=== PATIENT | male | born 1940 | race Caucasian/White ===

== ENCOUNTER 2018-02-16 03:43 | Inpatient (IN) | payer OTHER ==
[~2018-02-16] VITALS: Ht 182.9 cm; Wt 81.5 kg
[2018-02-16] MEDS ORDERED: LABETALOL HCL 5 MG/ML ML 20ML VIAL IV ONE (05:30)
[2018-02-16 06:09] LABS: Basophils # (auto) 0.1 uL; Basophils % (auto) 0.6 % (0.0-2.0); Eosinophils # (auto) 0.2 uL; Eosinophils % (auto) 1.7 % (0.0-7.0); Hemoglobin 10.6 g/dL (13.5-17.5); Lymphocytes # (auto) 1.1 uL; Lymphocytes % (auto) 10.7 % (10.0-50.0); Mean Corpuscular Hemoglobin 29.3 pg (28.0-32.0); Mean Corpuscular Hgb Conc. 33.1 g/dL (32.0-36.0); Mean Corpuscular Volume 88.4 fL (80.0-100.0); Monocytes % (auto) 9.4 % (0.0-12.0); Neutrophils # (auto) 8.1 uL; Neutrophils % (auto) 77.6 % (37.0-80.0); Nucleated Red Blood Cells % 0.1 %; Platelet Count (auto) 187 10^3/uL (140-450); Red Blood Cells 3.62 10^6/uL (4.5-5.90); Red Cell Distribution Width 15.4 % (11.8-14.3); White Blood Cell 10.4 10^3/uL (4.4-10.8)
[2018-02-16 06:16] LABS: Albumin 3.5 g/dL (3.4-5.0); BUN/Creatinine Ratio 21.5; Calcium 8.7 mg/dL (8.5-10.1); Magnesium 2.2 mg/dL (1.6-2.6); Potassium 3.2 mmol/L (3.5-5.1)
[2018-02-16 06:21] LABS: Bilirubin, Total 1.3 mg/dL (0.2-1.0); Total Protein 7.4 g/dL (6.4-8.2)
[2018-02-16 06:24] LABS: Urine Amorphous Crystal MANY /hpf (None Seen); Urine Bacteria FEW /hpf (None Seen); Urine Blood Negative /uL (Negative); Urine Mucus FEW (None Seen); Urine Specific Gravity 1.022 (1.001-1.035); Urine WBC 1 /hpf (0 - 3)
[2018-02-16] MEDS ORDERED: IOHEXOL 350 MG/ML 100ML IJ ONE (07:52)
[2018-02-16] MEDS ORDERED: FUROSEMIDE 40 MG/4 ML VIAL IV ONE ×2 (08:00→11:45)
[2018-02-16] MEDS ORDERED: POTASSIUM CHL 10% (20 MEQ/15ML) 15ml ORAL SOLN PO ONE (08:00)
[2018-02-16] MEDS ORDERED: cefTRIAXone 1GM/10ml IVPUSH 10 ML IV ONE (08:00)
[2018-02-16] MEDS ORDERED: AZITHROMYCIN 500MG/ 250ML 250 ML IV ONE (08:00)
[2018-02-16] MEDS ORDERED: ALBUTEROL SULF 2.5 MG/0.5ML(0.5%) NEB SOLN NEB PRN (08:15)
[2018-02-16] MEDS ORDERED: HYDROcodone-ACET 5/325MG TAB PO PRN (08:15)
[2018-02-16] MEDS ORDERED: ACETAMINOPHEN 500 MG TAB PO PRN (08:15)
[2018-02-16] MEDS ORDERED: LACTULOSE 20Gm/30ML SOLN PO PRN ×2 (08:15)
[2018-02-16] MEDS ORDERED: PROMETHAZINE HCL 25 MG/ML 1ML IV PRN (08:15)
[2018-02-16] MEDS ORDERED: NITROGLYCERIN 0.4 MG SL TAB SL PRN (08:15)
[2018-02-16] MEDS ORDERED: MORPHINE SULFATE 4 MG/ML SYR/VIAL IV PRN ×2 (08:15)
[2018-02-16] MEDS ORDERED: TEMAZEPAM 15 MG CAP PO PRN (08:15)
[2018-02-16] MEDS ORDERED: LORazepam 0.5 MG TAB PO PRN (08:15)
[2018-02-16] MEDS: cefTRIAXone 1GM/10ml IVPUSH 10 ML IV SCH (09:00)
[2018-02-16] MEDS: FUROSEMIDE 40 MG/4 ML VIAL IV SCH (09:33)
[2018-02-16] MEDS: POTASSIUM CHL 20 Meq TABLET PO SCH (09:34)
[2018-02-16] MEDS: ASPirin 81 mg TAB PO SCH (09:34)
[2018-02-16] MEDS: PANTOPRAZOLE 40 MG TAB PO SCH (09:34)
[2018-02-16] MEDS: AZITHROMYCIN 500MG/ 250ML 250 ML IV SCH (09:34)
[2018-02-16] MEDS: NITROGLYCERIN 0.2MG/HR TOPICAL PATCH TD SCH (09:35)
[2018-02-16] MEDS: ENOXAPARIN SOD 40 MG/0.4 ML SYRINGE SC SCH (09:35)
[2018-02-16] MEDS: ENALAPRIL MALEATE 2.5 MG TAB PO SCH (09:35)
[2018-02-16] MEDS ORDERED: CARVEDILOL 3.125 MG TAB PO SCH (10:00)
[2018-02-16 10:12] VITALS: BP 149/113
[2018-02-16 11:58] LABS: INR 1.07 (0.9-1.15); Partial Thromboplastin Time 28.7 sec (23.78-33.04); Prothrombin Time 11.4 sec (9.27-12.13)
[2018-02-16 12:00] VITALS: BP 136/86
[2018-02-16 13:00] VITALS: BP 123/72
[2018-02-16] MEDS: SODIUM CHLOR 0.9% PF (SALINE LOCK) 10ML VIAL/SYR IV SCH ×2 (13:38→22:07)
[2018-02-16] MEDS ORDERED: CLON0.1T PO (14:28)
[2018-02-16] MEDS ORDERED: CARV25TA55 PO (14:28)
[2018-02-16] MEDS ORDERED: ENA10T GT (14:28)
[2018-02-16 17:00] VITALS: BP 143/69
[2018-02-16 22:00] VITALS: BP 150/94
[2018-02-16] MEDS: CARVEDILOL 3.125 MG TAB PO SCH (22:08)
[2018-02-17 05:00] VITALS: BP 140/84
[2018-02-17] MEDS: SODIUM CHLOR 0.9% PF (SALINE LOCK) 10ML VIAL/SYR IV SCH ×3 (05:45→21:59)
[2018-02-17 06:21] LABS: Basophils # (auto) 0.1 uL; Basophils % (auto) 0.7 % (0.0-2.0); Eosinophils # (auto) 0.1 uL; Eosinophils % (auto) 1.2 % (0.0-7.0); Hematocrit 30.5 % (41.0-53.0); Hemoglobin 10.1 g/dL (13.5-17.5); Lymphocytes # (auto) 0.8 uL; Mean Corpuscular Hemoglobin 29.2 pg (28.0-32.0); Mean Corpuscular Hgb Conc. 33.1 g/dL (32.0-36.0); Mean Corpuscular Volume 88.1 fL (80.0-100.0); Monocytes # (auto) 1.3 uL; Monocytes % (auto) 11.8 % (0.0-12.0); Neutrophils # (auto) 8.9 uL; Neutrophils % (auto) 79.3 % (37.0-80.0); Nucleated Red Blood Cells % 0.1 %; Platelet Count (auto) 169 10^3/uL (140-450); Red Blood Cells 3.46 10^6/uL (4.5-5.90); Red Cell Distribution Width 14.9 % (11.8-14.3); White Blood Cell 11.2 10^3/uL (4.4-10.8)
[2018-02-17 06:36] LABS: Albumin 3.2 g/dL (3.4-5.0); BUN/Creatinine Ratio 21.7; Bilirubin, Total 1.6 mg/dL (0.2-1.0); Calcium 8.7 mg/dL (8.5-10.1); Potassium 3.1 mmol/L (3.5-5.1)
[2018-02-17 08:00] VITALS: BP 138/81
[2018-02-17] MEDS: cefTRIAXone 1GM/10ml IVPUSH 10 ML IV SCH (09:12)
[2018-02-17] MEDS: FUROSEMIDE 40 MG/4 ML VIAL IV SCH ×2 (09:13→18:28)
[2018-02-17] MEDS: ASPirin 81 mg TAB PO SCH (09:14)
[2018-02-17] MEDS: POTASSIUM CHL 20 Meq TABLET PO SCH (09:14)
[2018-02-17] MEDS: CARVEDILOL 3.125 MG TAB PO SCH ×2 (09:15→22:00)
[2018-02-17] MEDS: PANTOPRAZOLE 40 MG TAB PO SCH (09:16)
[2018-02-17] MEDS: ENALAPRIL MALEATE 2.5 MG TAB PO SCH (09:17)
[2018-02-17] MEDS: NITROGLYCERIN 0.2MG/HR TOPICAL PATCH TD SCH (09:18)
[2018-02-17] MEDS: AZITHROMYCIN 500MG/ 250ML 250 ML IV SCH (09:19)
[2018-02-17] MEDS: ENOXAPARIN SOD 40 MG/0.4 ML SYRINGE SC SCH (09:19)
[2018-02-17] MEDS ORDERED: POTASSIUM CHL 20 Meq TABLET PO ONE (10:00)
[2018-02-17] MEDS ORDERED: FURO40TA PO (10:13)
[2018-02-17] MEDS ORDERED: ASPI81CH43 PO (10:13)
[2018-02-17] MEDS ORDERED: POTA10TA51 PO (10:13)
[2018-02-17] MEDS ORDERED: ALBU1AER4 IN (10:15)
[2018-02-17 12:00] VITALS: BP 104/70
[2018-02-17 16:58] VITALS: BP 132/84
[2018-02-17 22:00] VITALS: BP 122/71
[2018-02-17] MEDS: ATORVASTATIN 20 MG TAB PO SCH (22:01)
[2018-02-18 05:20] VITALS: BP 125/74
[2018-02-18] MEDS: FUROSEMIDE 40 MG/4 ML VIAL IV SCH ×2 (05:44→17:57)
[2018-02-18] MEDS: SODIUM CHLOR 0.9% PF (SALINE LOCK) 10ML VIAL/SYR IV SCH ×3 (05:45→23:59)
[2018-02-18 08:00] VITALS: BP 131/74
[2018-02-18] MEDS: ENOXAPARIN SOD 40 MG/0.4 ML SYRINGE SC SCH (10:06)
[2018-02-18] MEDS: NITROGLYCERIN 0.2MG/HR TOPICAL PATCH TD SCH (10:06)
[2018-02-18] MEDS: ASPirin 81 mg TAB PO SCH (10:06)
[2018-02-18] MEDS: POTASSIUM CHL 20 Meq TABLET PO SCH (10:06)
[2018-02-18] MEDS: PANTOPRAZOLE 40 MG TAB PO SCH (10:06)
[2018-02-18] MEDS: ENALAPRIL MALEATE 2.5 MG TAB PO SCH (10:07)
[2018-02-18] MEDS: CARVEDILOL 3.125 MG TAB PO SCH ×2 (10:07→23:59)
[2018-02-18] MEDS ORDERED: POTASSIUM CHL 20MEQ/100ML 100 ML IV ONE (10:15)
[2018-02-18 10:40] LABS: Basophils # (auto) 0.1 uL; Basophils % (auto) 0.8 % (0.0-2.0); Eosinophils # (auto) 0.4 uL; Eosinophils % (auto) 4.3 % (0.0-7.0); Hematocrit 32.3 % (41.0-53.0); Hemoglobin 10.5 g/dL (13.5-17.5); Lymphocytes # (auto) 1.1 uL; Lymphocytes % (auto) 11.9 % (10.0-50.0); Mean Corpuscular Hemoglobin 28.5 pg (28.0-32.0); Mean Corpuscular Hgb Conc. 32.5 g/dL (32.0-36.0); Mean Corpuscular Volume 87.9 fL (80.0-100.0); Monocytes # (auto) 1.2 uL; Monocytes % (auto) 13.1 % (0.0-12.0); Neutrophils # (auto) 6.2 uL; Neutrophils % (auto) 69.9 % (37.0-80.0); Platelet Count (auto) 192 10^3/uL (140-450); Red Blood Cells 3.68 10^6/uL (4.5-5.90); White Blood Cell 8.9 10^3/uL (4.4-10.8)
[2018-02-18 11:01] LABS: Albumin 3.4 g/dL (3.4-5.0); BUN/Creatinine Ratio 21.9; Bilirubin, Total 0.7 mg/dL (0.2-1.0); Calcium 8.7 mg/dL (8.5-10.1); Potassium 3.2 mmol/L (3.5-5.1); Total Protein 7.7 g/dL (6.4-8.2)
[2018-02-18 12:00] VITALS: BP 124/78
[2018-02-18 16:51] VITALS: BP 136/87
[2018-02-18 21:52] VITALS: BP 144/94
[2018-02-18] MEDS: ATORVASTATIN 20 MG TAB PO SCH (23:59)
[2018-02-19] VITALS (8 sets, daily range): BP systolic 127–148; BP diastolic 75–95
[2018-02-19 05:56] LABS: Basophils # (auto) 0.1 uL; Basophils % (auto) 0.7 % (0.0-2.0); Eosinophils # (auto) 0.4 uL; Eosinophils % (auto) 4.1 % (0.0-7.0); Hematocrit 29.5 % (41.0-53.0); Hemoglobin 9.7 g/dL (13.5-17.5); Lymphocytes # (auto) 1.2 uL; Lymphocytes % (auto) 13.9 % (10.0-50.0); Mean Corpuscular Hemoglobin 29.1 pg (28.0-32.0); Mean Corpuscular Hgb Conc. 33.1 g/dL (32.0-36.0); Mean Corpuscular Volume 88.1 fL (80.0-100.0); Monocytes # (auto) 1.1 uL; Monocytes % (auto) 12.4 % (0.0-12.0); Neutrophils % (auto) 68.9 % (37.0-80.0); Platelet Count (auto) 186 10^3/uL (140-450); Red Blood Cells 3.34 10^6/uL (4.5-5.90); Red Cell Distribution Width 14.9 % (11.8-14.3); White Blood Cell 8.8 10^3/uL (4.4-10.8)
[2018-02-19] MEDS: SODIUM CHLOR 0.9% PF (SALINE LOCK) 10ML VIAL/SYR IV SCH ×3 (06:00→22:52)
[2018-02-19] MEDS: FUROSEMIDE 40 MG/4 ML VIAL IV SCH (06:00)
[2018-02-19 06:25] LABS: Albumin 3.3 g/dL (3.4-5.0); BUN/Creatinine Ratio 23.6; Bilirubin, Total 0.5 mg/dL (0.2-1.0); Potassium 3.2 mmol/L (3.5-5.1); Total Protein 7.4 g/dL (6.4-8.2)
[2018-02-19] MEDS: NITROGLYCERIN 0.2MG/HR TOPICAL PATCH TD SCH (09:54)
[2018-02-19] MEDS: CARVEDILOL 3.125 MG TAB PO SCH ×2 (09:54→22:54)
[2018-02-19] MEDS: PANTOPRAZOLE 40 MG TAB PO SCH (09:54)
[2018-02-19] MEDS: ASPirin 81 mg TAB PO SCH (09:54)
[2018-02-19] MEDS: ENALAPRIL MALEATE 2.5 MG TAB PO SCH (09:54)
[2018-02-19] MEDS ORDERED: IOHEXOL 350 MG/ML 100ML IJ ONE (10:00)
[2018-02-19] MEDS: SODIUM CHLORIDE 0.9% 1,000 ML IV SCH (10:00)
[2018-02-19] MEDS ORDERED: LIDOCAINE 2%HCL (LOCAL ANESTH.) INJ 20ML MDV ONE (10:01)
[2018-02-19] MEDS ORDERED: ANGIOMAX 250 MG VIAL IV ONE (10:24)
[2018-02-19] MEDS ORDERED: fentaNYL CITRATE 100 MCG/2 ML VL ONE (10:24)
[2018-02-19] MEDS ORDERED: MIDAZOLAM HCL 1MG/1ML-2 ML VIAL ONE (10:25)
[2018-02-19] MEDS ORDERED: SODIUM CHL 0.9% 50 ML ONE (10:25)
[2018-02-19] MEDS ORDERED: IODIXANOL 320MG/ML 100ML BTL IV ONE (11:20)
[2018-02-19] MEDS ORDERED: CLOPIDOGREL 300 MG TAB ONE ×2 (11:31→11:32)
[2018-02-19] MEDS ORDERED: ceFAZolin 1GM VL ONE (12:48)
[2018-02-19] MEDS: ATORVASTATIN 20 MG TAB PO SCH (22:53)
[2018-02-20 00:05] VITALS: BP 143/82
[2018-02-20] MEDS: SODIUM CHLORIDE 0.9% 1,000 ML IV SCH ×2 (00:53→12:14)
[2018-02-20 05:00] VITALS: BP 148/95
[2018-02-20] MEDS: SODIUM CHLOR 0.9% PF (SALINE LOCK) 10ML VIAL/SYR IV SCH ×2 (06:28→14:00)
[2018-02-20 06:45] LABS: Basophils # (auto) 0.1 uL; Basophils % (auto) 0.7 % (0.0-2.0); Eosinophils # (auto) 0.3 uL; Eosinophils % (auto) 3.3 % (0.0-7.0); Hematocrit 28.5 % (41.0-53.0); Hemoglobin 9.5 g/dL (13.5-17.5); Lymphocytes % (auto) 12.3 % (10.0-50.0); Mean Corpuscular Hemoglobin 29.3 pg (28.0-32.0); Mean Corpuscular Hgb Conc. 33.3 g/dL (32.0-36.0); Monocytes # (auto) 1.1 uL; Monocytes % (auto) 12.5 % (0.0-12.0); Neutrophils % (auto) 71.2 % (37.0-80.0); Platelet Count (auto) 175 10^3/uL (140-450); Red Blood Cells 3.24 10^6/uL (4.5-5.90); Red Cell Distribution Width 14.9 % (11.8-14.3); White Blood Cell 8.5 10^3/uL (4.4-10.8)
[2018-02-20 07:04] LABS: Albumin 2.9 g/dL (3.4-5.0); Calcium 8.6 mg/dL (8.5-10.1); Potassium 3.1 mmol/L (3.5-5.1)
[2018-02-20 07:07] LABS: BUN/Creatinine Ratio 25.5
[2018-02-20 07:08] LABS: Bilirubin, Total 0.8 mg/dL (0.2-1.0)
[2018-02-20 09:00] VITALS: BP 142/84
[2018-02-20] MEDS ORDERED: POTASSIUM CHL 20 Meq TABLET PO ONE (09:00)
[2018-02-20] MEDS ORDERED: CIPROFLOXACIN 400MG/200ML 200 ML IV SCH (10:00)
[2018-02-20] MEDS: NITROGLYCERIN 0.2MG/HR TOPICAL PATCH TD SCH (10:00)
[2018-02-20] MEDS ORDERED: CLOPIDOGREL BISULFATE 75 MG TAB PO SCH (10:00)
[2018-02-20] MEDS: PANTOPRAZOLE 40 MG TAB PO SCH (10:36)
[2018-02-20] MEDS: ENALAPRIL MALEATE 2.5 MG TAB PO SCH (10:36)
[2018-02-20] MEDS: ASPirin 81 mg TAB PO SCH (10:37)
[2018-02-20] MEDS: CARVEDILOL 3.125 MG TAB PO SCH (10:37)
[2018-02-20] MEDS ORDERED: cloNIDine HCL 0.1 MG TAB PO SCH (11:30)
[2018-02-20] MEDS ORDERED: FUROSEMIDE 40 MG TAB PO SCH (11:30)
[2018-02-20] MEDS ORDERED: ENALAPRIL MALEATE 10 MG TAB PO SCH (11:30)
[2018-02-20] MEDS ORDERED: POTASSIUM CHL 10 Meq TABLET PO SCH (11:30)
[2018-02-20 13:00] VITALS: BP 137/81
[2018-02-20] MEDS ORDERED: CARVEDILOL 12.5 MG TAB PO SCH (22:00)
[2018-02-20] MEDS ORDERED: PATIENTS OWN MEDICATION (Potassium Chloride (Potassium Chloride Cr) 10 MEQ) PO SCH (22:00)
[2018-02-20] MEDS ORDERED: PATIENTS OWN MEDICATION (Carvedilol 25 MG) PO SCH (22:00)
[2018-02-21] MEDS ORDERED: ASPirin 81 mg TAB PO SCH (10:00)
== END 2018-02-20 17:45 | disposition home health service (06) | DRG 246 ==
LOC: ER 03:46 → TELE 03:47 → TELE-CENTR 10:54
PROVIDERS: ADMIT Internal Medicine; ATTEND Internal Medicine
PROC: 027337Z Dilation of Coronary Artery, Four or More Arteries with Four or More Drug-eluting Intraluminal Devices, Percutaneous Approach (ICD-10-PCS; principal; 2018-02-19)
PROC: 4A023N7 Measurement of Cardiac Sampling and Pressure, Left Heart, Percutaneous Approach (ICD-10-PCS; 2018-02-19)
PROC: B2111ZZ Fluoroscopy of Multiple Coronary Arteries using Low Osmolar Contrast (ICD-10-PCS; 2018-02-19)
DX: I25.10 Atherosclerotic heart disease of native coronary artery without angina pectoris (principal); I50.21 Acute systolic (congestive) heart failure; N17.9 Acute kidney failure, unspecified; I69.354 Hemiplegia and hemiparesis following cerebral infarction affecting left non-dominant side; I11.0 Hypertensive heart disease with heart failure; I42.9 Cardiomyopathy, unspecified; D63.8 Anemia in other chronic diseases classified elsewhere; E87.6 Hypokalemia; M46.04 Spinal enthesopathy, thoracic region; T50.1X5A Adverse effect of loop [high-ceiling] diuretics, initial encounter; Y92.89 Other specified places as the place of occurrence of the external cause; Z87.891 Personal history of nicotine dependence; Z95.1 Presence of aortocoronary bypass graft; Z95.5 Presence of coronary angioplasty implant and graft; Z90.49 Acquired absence of other specified parts of digestive tract; Z79.899 Other long term (current) drug therapy
CPT/HCPCS: 36415; 71045; 71046; 71275; 80053; 80061; 81001; 82550; 83735; 83880; 84443; 84484; 85025; 85379; 85610; 85730; 86850; 86900; 86901; 87040; 87070; 87205; 93005; 93306; 96361; 96365; 96375; 99152; C1874; C9600; C9601; J0690; J2250; J3480; Q9967